=== PATIENT | male | born 2000 | race Hispanic/Latino ===

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

== ENCOUNTER 2023-06-04 09:32 | Emergency (ER) | payer OTHER ==
[~2023-06-04] VITALS: Ht 182.9 cm; Wt 79.3 kg
[2023-06-04] VITALS (7 sets, daily range): BP systolic 100–133; BP diastolic 58–81
[~2023-06-04 09:32] MED LIST changes: +AMOXICILLIN500 MG PO
== END 2023-06-04 11:10 | disposition home or self-care (01) ==
LOC: ED 09:32
DX: S93.402A Sprain of unspecified ligament of left ankle, initial encounter (principal); X50.0XXA Overexertion from strenuous movement or load, initial encounter; Y99.0 Civilian activity done for income or pay